=== PATIENT | male | born 1995 | race Caucasian/White ===

== ENCOUNTER 2023-08-01 12:56 | Emergency (ER) | payer OTHER ==
[~2023-08-01] VITALS: Ht 185.4 cm; Wt 95.5 kg
[2023-08-01] MEDS ORDERED: ACET-683 PO (13:33)
[2023-08-01] MEDS ORDERED: IBUPROFEN 600MG TAB PO ONE (13:35)
[2023-08-01 14:33] LABS: RSV AMPLIFICATION NEGATIVE (NEGATIVE)
[2023-08-01] MEDS ORDERED: IBUP-1022 PO (18:23)
[2023-08-01 18:48] VITALS: BP 129/65; TEMP 97.8; O2SAT 99
== END 2023-08-01 18:56 | disposition home or self-care (01) ==
LOC: M ED 12:56
DX: B34.9 Viral infection, unspecified (principal); R50.9 Fever, unspecified; R51.9 Headache, unspecified; Z11.52 Encounter for screening for COVID-19